=== PATIENT | female | born 1950 | race African-American/Black ===

== ENCOUNTER 2024-02-17 21:46 | Emergency (ER) | payer MEDICARE ==
[~2024-02-17] VITALS: Ht 162.6 cm; Wt 59.0 kg
[2024-02-17 21:58] VITALS: BP_SYST 157; PULSE 95; RESP 15; TEMP 97.2; O2SAT 100
[2024-02-17 23:27] LABS: BASOPHILS # (AUTO) 0.2 K/uL (0.0-0.2); BASOPHILS % (AUTO) 1.5 % (0.0-2.0); EOSINOPHILS # (AUTO) 0.1 K/uL (0.0-0.4); EOSINOPHILS % (AUTO) 0.5 % (0.0-4.0); HEMATOCRIT 33.5 % (36-48); LYMPHOCYTES % (AUTO) 7.2 % (20.5-51.5); MEAN CORPUSCULAR HEMOGLOBIN 28 pg (27-31); MEAN CORPUSCULAR HGB CONC 33 % (32-36); MEAN CORPUSCULAR VOLUME 85 fL (79.0-98.0); MONOCYTES # (AUTO) 0.5 K/uL (0.0-1.0); MONOCYTES % (AUTO) 3.3 % (1.7-9.3); NEUTROPHILS # (AUTO) 12.3 K/uL (1.8-7.7); NEUTROPHILS % (AUTO) 87.5 % (40.0-70.0); PLATELET COUNT (AUTO) 366 K/uL (130-430); RED BLOOD CELL COUNT(AUTO) 3.96 MIL/uL (4.2-6.2)
[2024-02-17] MEDS: MORPHINE 4 MG INJ. 4 MG/ML VIAL IVP ONE (23:28)
[2024-02-17] MEDS: ONDANSETRON HCL 4 MG/2 ML VIAL IVP ONE (23:28)
[2024-02-17 23:48] LABS: ALANINE AMINOTRANSFERASE 11 U/L (12-78); ALBUMIN 3.8 g/dL (3.4-4.8); ANION GAP 10 (5-15); ASPARTATE AMINOTRANSFERASE 21 U/L (10-37); CALCIUM 12.3 mg/dL (8.4-11.0); CARBON DIOXIDE 26 mmol/L (23-29); CHLORIDE 97 mmol/L (98-107); CREATININE 1.63 mg/dL (0.55-1.30); GLUCOSE 164 mg/dL (74-106); LIPASE 56 U/L (16-77); POTASSIUM 4.6 mmol/L (3.5-5.1); SODIUM SERUM 133 mmol/L (136-145); TOTAL BILIRUBIN 0.5 mg/dL (0.0-1.0); TOTAL PROTEIN, SERUM 8.4 g/dL (6.4-8.3); UREA NITROGEN, BLOOD 36 mg/dL (8-21)
[2024-02-18 00:43] LABS: BILIRUBIN,URINE 1+ (NEGATIVE); CLARITY/URINE CLEAR (CLEAR); COLOR,URINE YELLOW (YELLOW); GLUCOSE,URINE NEGATIVE (NEGATIVE); KETONES,URINE 1+ (NEGATIVE); LEUKOCYTE ESTERASE ,URINE 2+ (NEGATIVE); NITRITE, URINE NEGATIVE (NEGATIVE); PROTEIN URINE TRACE (NEGATIVE); UROBILINOGEN,URINE 0.2 (0.2-1.0)
[2024-02-18 00:45] LABS: BLOOD, URINE TRACE (NEGATIVE)
[2024-02-18] MEDS: HYDROmorphone 1 MG/ML INJ. CARTRIDGE IVP ONE (00:45)
[2024-02-18 01:07] LABS: BACTERIA,URINE MODERATE /HPF (None Seen)
[2024-02-18] MEDS ORDERED: SULF1TAB48 PO (03:07)
[2024-02-18 03:25] VITALS: BP_SYST 131; PULSE 68; RESP 16; TEMP 97.9; O2SAT 96
== END 2024-02-18 03:25 | disposition home or self-care (01) ==
LOC: SED 21:46
DX: N17.9 Acute kidney failure, unspecified (principal); R10.9 Unspecified abdominal pain; M54.6 Pain in thoracic spine; R11.2 Nausea with vomiting, unspecified; R21 Rash and other nonspecific skin eruption; E11.9 Type 2 diabetes mellitus without complications; E78.5 Hyperlipidemia, unspecified; I10 Essential (primary) hypertension; Z88.5 Allergy status to narcotic agent; Z88.6 Allergy status to analgesic agent; Z79.2 Long term (current) use of antibiotics
CPT/HCPCS: 99284; 96374; 96375 ×2; 80053; 81001; 83690; 85025; 87086; 36415; J2405; J2270; J1171; 81000; 81015